=== PATIENT | female | born 1995 | race Caucasian/White ===

== ENCOUNTER 2019-02-06 20:49 | Emergency (ER) | payer OTHER ==
[2019-02-06] MEDS ORDERED: ALBUTEROL SULF 0.083% NEB SOLN 3 ML NEB NEB STA (21:43)
[2019-02-06] MEDS ORDERED: IPRATROPIUM BROMIDE 0.02% 2.5 ML NEB NEB STA (21:43)
[2019-02-06] MEDS ORDERED: DEXAMETHASONE SOD PHOS 10 MG/1 ML VIAL IV ONE (21:45)
[2019-02-06] MEDS ORDERED: DEXAMETHASONE SOD PHOS 10 MG/1 ML VIAL ONE (21:50)
[2019-02-06] MEDS ORDERED: IBUPROFEN 600 MG TAB ONE (21:53)
[2019-02-06] MEDS ORDERED: DEXAMETHASONE SOD PHOS 10 MG/1 ML VIAL IM ONE ×2 (22:00)
--- NOTE | 2019-02-06 22:56 | Diagnostic Imaging Report ---
EXAMINATION: CHEST 2 VIEWS INDICATION: ^ORDER PLACED BY ^[id number] ^[id number] ^Y COMPARISON: None FINDINGS: PA and lateral views TUBES and LINES: None. LUNGS: Lungs are well inflated. Central peribronchovascular thickening/cuffing. PLEURA: No pleural effusion or pneumothorax. HEART AND MEDIASTINUM: The cardiomediastinal silhouette is unremarkable. BONES AND SOFT TISSUES: No acute osseous lesion. Soft tissues are unremarkable. UPPER ABDOMEN: No free air under the diaphragm. IMPRESSION: Central peribronchovascular thickening/cuffing. No definite focal consolidation. Signed by: Dr. Duc Fishman MD on 02/06/2019 10:53 PM
== END 2019-02-06 23:50 | disposition home or self-care (01) ==
LOC: ER 20:49
DX: R05 Cough (principal); J20.9 Acute bronchitis, unspecified; Z87.891 Personal history of nicotine dependence
CPT/HCPCS: 71046; 94640; 99283; J1100